=== PATIENT | male | born 1975 | race Caucasian/White ===

== ENCOUNTER 2024-05-19 06:19 | Day surgery (SDC) | payer OTHER, SELFPAY | END 2024-05-19 15:08 | disposition home or self-care (01) | LOC: GI 06:19 | PROVIDERS: ATTENDING PHYSICIAN Internal Medicine; FAMILY PHYSICIAN Family Medicine | DX: Z12.11 Encounter for screening for malignant neoplasm of colon (principal); D12.8 Benign neoplasm of rectum; K64.8 Other hemorrhoids | CPT/HCPCS: 45380; 88305 ==